=== PATIENT | male | born 1975 | race Caucasian/White ===

== ENCOUNTER 2017-12-20 19:36 | Inpatient (IN) ==
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
[2017-12-21] MEDS ORDERED: Bisacodyl 10 MG Supp RECTAL PRN (11:42)
[2017-12-21] MEDS ORDERED: Aluminum/Magnesium/Simethacone Susp 30 ML UDC PO PRN (11:42)
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
[2017-12-21] MEDS: Senna/Docusate Sodium 8.6/50 MG Tablet PO SCH (21:44)
[2017-12-22 10:13] LABS: Calcium 9.2 mg/dL (8.5-10.1); Carbon Dioxide 29.6 meq/L (21.0-32.0); Potassium 3.6 meq/L (3.5-5.1)
[2017-12-22 10:16] LABS: Chol/HDL Ratio 3.65 Ratio; HDL Cholesterol 41.9 mg/dL (40.0-60.0)
[2017-12-22 14:09] LABS: Hemoglobin A1c 5.6 % (4.3-6.0)
--- NOTE | 2017-12-22 14:09 | P.PNPSY ---
Subjective Remarks: Pt seen and discussed with staff. He has been compliant with medications and denies side effects. No aggression or agitation. He reports SI but states decreased today. He is angry with but today gave consent for communication with . He states that he wishes to resume home medications. Pt demonstrates capacity to consent for medications but refuses to consent for hospitalization. Risks vs benefits, potential side effects, rational for use discussed with pt. Mental Status Examination Appearance: Appropriate Consciousness: Alert Orientation: x4 Speech: Hesitant Language: Adequate Fund of Knowledge: Adequate Memory: Unremarkable Mood: Angry, Sad Affect: Irritable, Sad Thought Process & Associations: Logical Thought Content: Appropriate Suicidal Ideation: Yes Suicidal Plan: Yes Suicidal Intention: No Homicidal Ideation: No Homicidal Plan: No Homicidal Intention: No Insight: Poor Judgment: Poor Assessment and Plan - Assessment (1) Depression Code(s): F32.9 - Major depressive disorder, single episode, unspecified Status : Acute - Plan Plan: Resume home psychiatric medications. Continue hospitalization for safety Justification for Continued Inpatient Stay: suicidal (1) Depression Qualifiers: Depression Type: major depressive disorder Major depression episode severity : severe Psychotic features: without psychotic features
[2017-12-22] MEDS: Senna/Docusate Sodium 8.6/50 MG Tablet PO SCH ×2 (17:57→21:40)
[2017-12-23] MEDS ORDERED: buPROPion 100 MG ER 12 HR Tablet PO SCH (09:00)
[2017-12-23] MEDS: lamoTRIgine 25 MG TABLET PO SCH ×2 (09:26→20:49)
[2017-12-23] MEDS: Senna/Docusate Sodium 8.6/50 MG Tablet PO SCH ×2 (09:26→20:49)
--- NOTE | 2017-12-23 13:43 | P.CON ---
History of Present Illness Service: Hospitalist Consult date: 12/23/17 Requesting Physician: Kadeem Hall Reason for Consult: Medical management Primary Care Provider: UNKNOWN History of Present Illness: This is a 42-year-old male admitted on 12/20/17 for suicide attempt/ Rivas act. This is his second attempt and admission this month. Other medical history includes asthma, chronic pain (neck and back), hypertension and irritable bowel syndrome with constipation. Mental health problems include depression, anxiety, PTSD and adjustment disorder. He does follow with the [place]. We are being consulted for medical management. He is seen in his room sitting on his bed. He is very pleasant and cooperative. Has no acute concerns of a physical nature. Denies chest pain or shortness of breath. Denies nausea vomiting or diarrhea. His biggest concern is getting his home medications restarted. He does tell me that his medication for his hypertension has recently been changed - he was on metoprolol however this was stopped and he was changed to Minipress. This medication was being given both for nightmares and hypertension. He states that he only took it 3 times. He also has a history of asthma which has been well controlled on Advair. He does have an albuterol inhaler however he rarely uses it. Chronic neck and back pain is from injuries sustained in the service. He takes daily Mobic which has been adequate. Final complaint is of irritable bowel syndrome with constipation. He takes trulance at home and tells me that without this medication he will frequently not have a bowel movement for more than 4 or 5 days. Stool softeners such as Colace do not work for him. He previously had a poor reaction to Linzess. He does report having a small bowel movement last night. Review of recent labs indicate a mild elevation in triglycerides. Tells me he has no history of hyperlipidemia and has never taken medication for this. He does not drink alcohol but does report a high carbohydrate diet. Denies any abdominal tenderness. Review of Systems All other systems reviewed negative except as stated in HPI PMFSH - History History Provided By: Patient, Medical Record - Medical History Medical History: Medical History (Last Updated 12/23/17 @ 15:13 by KATYA Mcclellan) Asthenia HTN (hypertension) Irritable bowel syndrome (IBS) Anxiety Depression PTSD (post-traumatic stress disorder) - Surgical History Surgical History: Surgical History (Last Reviewed 12/23/17 @ 15:13 by KATYA Mcclellan) H/O arthroscopy of shoulder - Family History Family History: Family History (Last Reviewed 12/23/17 @ 15:13 by KATYA Mcclellan) Sister ADHD - Tobacco History Second Hand Smoke Exposure: No Smoking Status: Never smoker - Alcohol History How Often Do You Have a Drink Containing Alcohol: Never - Substance Use History Substance History: No History of Abuse - Travel History Recent Travel in the [place] Within the Last 8 Weeks: No Recent Travel Out of the Country Within the Last 8 Weeks: No - Immunization History Tetanus Immunization: Unable to Assess Hx Influenza Vaccine This Season: Unable to Assess Medications and Allergies Active Medications: Active Medications Al Hydrox/Mg Hydrox/Simethicone (Mag-Al Plus Susp Liq) 30 ml PO Q6H PRN PRN Reason: DYSPEPSIA Al Hydroxide/Mg Hydroxide (Milk Of Magnesia Liq) 30 ml PO DAILY PRN PRN Reason: CONSTIPATION Al Hydroxide/Mg Hydroxide (Milk Of Magnesia Liq) 30 ml PO Q12H PRN PRN Reason: Mild Constipation Albuterol (Ventolin Hfa Inh) 1 puff INH Q4H PRN PRN Reason: Shortness Of Breath Bisacodyl (Dulcolax Supp) 10 mg RECTAL DAILY PRN PRN Reason: SEVERE CONSITIPATION Budesonide/Formoterol Fumarate (Symbicort 160/4.5 Mcg Inh) 2 puff INH BID [facility] Bupropion HCl (Wellbutrin Sr) 100 mg PO DAILY [facility] Last Admin: 12/23/17 09:26 Dose: Not Given Lactulose (Lactulose Liq) 30 ml PO DAILY PRN PRN Reason: SEVERE CONSITIPATION Lamotrigine (Lamictal) 25 mg PO BID [facility] Last Admin: 12/23/17 09:26 Dose: 25 mg Meloxicam (Mobic) 15 mg PO DAILY [facility] Patient Own Medication: Trulance (Plecanatide) 3mg Tablet 1 each PO DAILY [facility] Senna/Docusate Sodium (Antonina-Colace) 1 tab PO BID [facility] Last Admin: 12/23/17 09:26 Dose: 1 tab Sennosides (Senokot) 17.2 mg PO Q12H PRN PRN Reason: Moderate Constipation Allergies Allergy/AdvReac Type Severity Reaction Status Date / Time amitriptyline Allergy Hallucinati Verified 12/16/17 23:33 ons bupropion AdvReac Unknown Irritabilit Verified 12/23/17 11:15 [From Wellbutrin SR] y/Anxiety Home Medications Medication Instructions Recorded Confirmed Type Singulair 10 mg PO HS 12/16/17 12/20/17 History albuterol sulfate 1 puff INHALATION Q4-6H PRN 12/16/17 12/20/17 History baclofen 10 mg PO HS 12/16/17 12/20/17 History baclofen 20 mg PO DAILY 12/16/17 12/20/17 History buspirone 10 mg PO BID 12/16/17 12/20/17 History fluticasone-salmeterol [Advair 1 inh INHALATION Q12H 12/16/17 12/20/17 History Diskus] lamotrigine [Lamictal] 75 mg PO HS 12/16/17 12/20/17 History pantoprazole [Protonix] 40 mg PO DAILY 12/16/17 12/20/17 History plecanatide [Trulance] 3 mg PO DAILY 12/16/17 12/20/17 History metoprolol succinate 75 mg PO DAILY 12/18/17 12/20/17 History Physical Exam Vital signs: Vital Signs 12/22/17 18:54 12/23/17 06:00 Temperature 97.9 F 97.6 F Pulse Rate 76 87 Respiratory Rate 18 18 Blood Pressure 131/72 130/67 Pulse Oximetry 98 98 Narrative: GENERAL: This is a well-nourished, well-developed patient, in no apparent distress. SKIN: Warm and dry. HEENT: Normocephalic. Pupils equal round. Airway patent. NECK: Trachea midline. No JVD. CARDIOVASCULAR: Regular rate and rhythm. RESPIRATORY: Clear to auscultation. Breath sounds equal bilaterally. No wheezes , rales, or rhonchi. GASTROINTESTINAL: Abdomen soft, non-tender, nondistended. Bowel Sounds normal. MUSCULOSKELETAL: Extremities without clubbing, cyanosis, or edema. Moves all extremities. PSYCHIATRIC: Awake and alert. Fully oriented. Calm. Assessment and Plan - Plan Summary of illness: This is a 42-year-old male admitted on 12/20/17 for suicide attempt/Rivas act. This is his second attempt and admission this month. Other medical history includes asthma, chronic pain (neck and back), hypertension and irritable bowel syndrome with constipation. Mental health problems include depression, anxiety, PTSD and adjustment disorder. [facility] for [facility] management. Depression, PTSD and suicidal idealization -Managed by psychiatry Asthma -Restart home Advair or equivalent. Albuterol inhaler as needed. Hypertension -Has been normotensive since admission. Consider restarting Minipress after consult with psychiatry if blood pressure is elevated. Chronic pain -Restart daily Mobic. -Monitor kidney function Constipation -Restart trulance -Encourage fluids -TSH normal DVT prophylaxis: Patient is ambulatory Discussed with: Patient and nurse Thank you for this consult. We look forward to working with you to manage this patient's medical conditions.
--- NOTE | 2017-12-23 15:21 | P.PNPSY ---
Subjective Remarks: Pt seen and discussed with staff. Pt refused to take bupropion today stating that he has an allergy even though he previously took it and was discharged home on it from previous admission. He reports that it doesn't help with mood and seems to worsen anxiety. His reported to RN that [facility] outpatient was planning on trial of citalopram prior to pt's most recent suicide attempt. Pt states that he would like to try citalopram as he has taken other SSRis and done well with them in the past. Risks vs benefits, indication for use and side effects discussed. Mental Status Examination Appearance: Appropriate Consciousness: Alert Orientation: x4 Speech: Hesitant Language: Adequate Fund of Knowledge: Adequate Memory: Unremarkable Mood: Angry, Sad Affect: Irritable, Sad Thought Process & Associations: Logical Thought Content: Appropriate Suicidal Ideation: No Suicidal Plan: No Suicidal Intention: No Homicidal Ideation: No Homicidal Plan: No Homicidal Intention: No Insight: Poor Judgment: Poor Assessment and Plan - Assessment (1) Depression Code(s): F32.9 - Major depressive disorder, single episode, unspecified Status : Acute - Plan Plan: Discontinue wellbutrin. Start citalopram 20mg daily for depression. Continue hospitalization for safety Justification for Continued Inpatient Stay: monitoring for safety (1) Depression Qualifiers: Depression Type: major depressive disorder Major depression episode severity : severe Psychotic features: without psychotic features
[2017-12-23] MEDS: Budesonide-Formoterol 160/4.5 MCG 6 GM Inhaler INH SCH ×2 (18:19→20:49)
[2017-12-23] MEDS: Meloxicam 15 MG Tablet PO SCH (18:19)
[2017-12-24] MEDS ORDERED: TRULANCE 3 MG PO SCH (09:00)
[2017-12-24] MEDS: Meloxicam 15 MG Tablet PO SCH (09:13)
[2017-12-24] MEDS: Senna/Docusate Sodium 8.6/50 MG Tablet PO SCH ×2 (09:14→20:50)
[2017-12-24] MEDS: Budesonide-Formoterol 160/4.5 MCG 6 GM Inhaler INH SCH ×2 (09:14→21:03)
[2017-12-24] MEDS: lamoTRIgine 25 MG TABLET PO SCH ×2 (09:14→20:50)
[2017-12-24] MEDS: Citalopram 20 MG Tablet PO SCH (09:14)
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
--- NOTE | 2017-12-24 13:54 | P.PN ---
Subjective Interval history: Follow up on patient with HTN, asthma, PTSD. Patient seen and examined. Patient reports he feels better today. He denies any complaints of cough or shortness of breath. He does report occasional chest discomfort that he attributes to his anxiety and improves with breathing exercises. He denies any nausea, vomiting or abdominal pain. He states his bowels have been regular on the stool softener we are giving him. He denies any urinary difficulties. Discussed with nursing staff, no acute issues noted. Physical Exam Vital signs: Vital Signs 12/23/17 17:44 12/24/17 06:00 Temperature 98.2 F 98.6 F Pulse Rate 94 H 90 Respiratory Rate 18 Blood Pressure 144/78 H 117/66 Pulse Oximetry 99 100 Intake & Output 12/23/17 12/24/17 12/24/17 18:59 06:59 18:59 Weight 107.7 kg Other: Date of Last Bowel Movement 12/20/17 Narrative: GENERAL: This is a well-nourished, well-developed male patient, in no apparent distress. Awake and alert. Ambulating in unit without any difficulty. SKIN: Warm and dry. No generalized rash. HEENT: Atraumatic. Normocephalic. EOMI. Sclera anicteric. No nasal drainage. Airway patent. MMM. NECK: Trachea midline. No CARDIOVASCULAR: Regular rate and rhythm. No murmur. RESPIRATORY: Clear to auscultation. Breath sounds equal bilaterally. No wheezes , rales, or rhonchi. GASTROINTESTINAL: Abdomen soft, non-tender, nondistended. Bowel Sounds normal. MUSCULOSKELETAL: Extremities without clubbing, cyanosis, or edema. NEUROLOGIC: Awake and alert. CN II-XII grossly intact. Motor function grossly intact. Nonfocal. Normal speech. PSYCHIATRIC: Calm and cooperative. Results - Labs CBC & Chem 7: 12/22/17 09:29 Assessment and Plan - Assessment (1) Hypertension Code(s): I10 - Essential (primary) hypertension Status: Acute (2) Chronic constipation Code(s): K59.09 - Other constipation Status: Acute (3) Asthma Code(s): J45.909 - Unspecified asthma, uncomplicated Status: Acute (4) Depression Code(s): F32.9 - Major depressive disorder, single episode, unspecified Status : Acute (5) History of posttraumatic stress disorder (PTSD) Code(s): Z86.59 - Personal history of other mental and behavioral disorders Status: Acute - Plan 42-year-old male admitted on 12/20/17 for suicide attempt/Rivas act. This is his second attempt and admission this month. Other medical history includes asthma, chronic pain (neck and back), hypertension and irritable bowel syndrome with constipation. Mental health problems include depression, anxiety , PTSD and adjustment disorder. [facility] for medical management. Depression, PTSD and suicidal ideation -continue management per psychiatric team Asthma, not in acute exacerbation -Continue on Symbicort -Albuterol inh prn -continue to monitor respiratory status Hypertension, overall controlled -Patient previously on Minipress - will defer to psychiatry resuming this medication -Clonidine prn with parameters Chronic pain -continue on Mobic -Monitor kidney function as indicated IBS - Constipation type Patient reports good BMs on current stool softener patient would like to hold off on home medication Trulance -continue on PeriColace BID -Encourage fluids DVT prophylaxis: Patient is ambulatory Patient is medically stable from hospitalist standpoint. [facility] will sign off. Please reconsult if needed. Discussed Condition With: patient, nursing staff, Dr. Porter (4) Depression Qualifiers: Depression Type: major depressive disorder Major depression episode severity : severe Psychotic features: without psychotic features
[2017-12-24] MEDS ORDERED: Prazosin HCl 1 MG Capsule PO SCH (21:00)
[2017-12-24] MEDS ORDERED: Baclofen 10 MG Tablet PO SCH (21:00)
[2017-12-25] MEDS: Citalopram 20 MG Tablet PO SCH (08:55)
[2017-12-25] MEDS: Meloxicam 15 MG Tablet PO SCH (08:55)
[2017-12-25] MEDS: lamoTRIgine 25 MG TABLET PO SCH (08:55)
[2017-12-25] MEDS: Senna/Docusate Sodium 8.6/50 MG Tablet PO SCH (08:56)
[2017-12-25] MEDS ORDERED: Montelukast 10 MG Tablet PO SCH (09:00)
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
== END 2017-12-25 13:15 | disposition short-term general hospital (02) ==
LOC: NEPJ 19:36 → NEDA 12-21 11:45 → H270 12-21 13:50
PROVIDERS: ADMIT Psychiatry & Neurology Psychiatry; ATTEND Psychiatry & Neurology Psychiatry